=== PATIENT | male | born 1960 | race Caucasian/White ===

== ENCOUNTER 2021-02-14 15:11 | Inpatient (IN) | payer OTHER ==
[~2021-02-14] VITALS: Ht 182.9 cm; Wt 91.2 kg
[2021-02-14] MEDS ORDERED: HEPARIN 25,000 UNIT 1,500 UNIT in DEXTROSE 5% 250ML 250 ML IV SCH (15:45)
[2021-02-14 15:54] VITALS: BP 145/92
[2021-02-14 16:00] LABS: BASOPHILS # (AUTO) 0.1 (0.0-0.1); BASOPHILS % 0.5 % (0.0-1.0); EOSINOPHILS # (AUTO) 0.3 (0.0-0.4); EOSINOPHILS % 3.4 % (0.0-6.0); HEMATOCRIT 44.7 % (38.2-49.6); HEMOGLOBIN 14.8 g/dL (14.0-18.0); LYMPHOCYTES # (AUTO) 1.5 (1.0-3.2); LYMPHOCYTES % 14.5 % (18.0-39.1); MEAN CORPUSCULAR HEMOGLOBIN 31.1 pg (28-32); MEAN CORPUSCULAR HGB CONC 33.1 g/dL (31-35); MEAN CORPUSCULAR VOLUME 93.9 fL (81-99); MONOCYTES # (AUTO) 0.8 (0.2-0.8); MONOCYTES % 7.9 % (4.4-11.3); NEUTROPHILS # (AUTO) 7.4 (2.1-6.9); NEUTROPHILS % 73.3 % (38.7-80.0); PLATELET COUNT 164 x10e3/uL (140-360); RED BLOOD COUNT 4.76 x10e6/uL (4.3-5.7); RED CELL DISTRIBUTION WIDTH 13.1 % (11.7-14.4)
[2021-02-14 16:03] VITALS: BP 145/92
[2021-02-14 16:11] LABS: INR 0.92; PARTIAL THROMBOPLASTIN TIME 29.9 seconds (23.8-35.5)
[2021-02-14 16:19] LABS: ALANINE AMINOTRANSFERASE 36 IU/L (0-55); ALBUMIN/GLOBULIN RATIO 1.2 (0.8-2.0); ALKALINE PHOSPHATASE 51 IU/L (40-150); ANION GAP 12.4 mmol/L (8-16); BLOOD UREA NITROGEN 16 mg/dL (7-26); BUN/CREATININE RATIO 16 (6-25); CALCIUM 9.1 mg/dL (8.4-10.2); CARBON DIOXIDE 27 mmol/L (22-29); CHLORIDE 108 mmol/L (98-107); CHOL/HDL RATIO 3.4 (3.9-4.7); CHOLESTEROL 147 MD/DL (0-199); CREATININE, SERUM 0.97 mg/dL (0.72-1.25); EST GLOMERULAR FILTRATION RATE > 60 ML/MIN (60-); GLUCOSE 106 mg/dL (74-118); HDL CHOLESTEROL 43 MG/DL (40-60); LDL CHOLESTEROL 86 MG/DL (60-130); POTASSIUM 4.4 mmol/L (3.5-5.1); SODIUM 143 mmol/L (136-145); TRIGLYCERIDES 90 MG/DL (0-149)
[2021-02-14] MEDS: HEPARIN 25,000 UNIT 1,500 UNIT in DEXTROSE 5% 250ML 250 ML IV SCH (17:57)
[2021-02-14] MEDS ORDERED: ONDANSETRON HCL INJ 2MG/ML 2ML 2 MG/ML VIAL IV PRN (18:00)
[2021-02-14] MEDS ORDERED: DOCUSATE SODIUM 100 MG CAP PO PRN (18:00)
[2021-02-14] MEDS ORDERED: ZOLPIDEM TARTRATE 5 MG TAB PO PRN (18:00)
[2021-02-14] MEDS ORDERED: ACETAMINOPHEN 325 MG TAB PO PRN (18:00)
[2021-02-14] MEDS ORDERED: METOPROLOL TART25 MG PO (18:36)
[2021-02-14] MEDS ORDERED: LIPITOR10 MG PO (18:36)
[2021-02-14] MEDS ORDERED: LEXAPRO10 MG PO (18:37)
[2021-02-14 20:00] VITALS: BP 130/80
[2021-02-14] MEDS: ATORVASTATIN 10 MG TAB PO SCH (20:12)
[2021-02-14 21:00] VITALS: BP 130/80
[2021-02-15] VITALS (7 sets, daily range): BP systolic 119–141; BP diastolic 77–87
[2021-02-15] MEDS: HEPARIN 25,000 UNIT 1,500 UNIT in DEXTROSE 5% 250ML 250 ML IV SCH (00:24)
[2021-02-15 07:12] LABS: INR 0.95; PROTHROMBIN TIME 13.3 seconds (11.9-14.5)
[2021-02-15 07:13] LABS: PARTIAL THROMBOPLASTIN TIME 69.4 seconds (23.8-35.5)
[2021-02-15] MEDS ORDERED: METOPROLOL TARTRATE 25 MG TAB PO SCH (09:00)
[2021-02-15] MEDS: ESCITALOPRAM OXALATE 10 MG TAB PO SCH (09:23)
[2021-02-15] MEDS: PANTOPRAZOLE SOD 40 MG TABEC PO SCH (09:23)
[2021-02-15 10:08] LABS: BASOPHILS # (AUTO) 0.1 (0.0-0.1); BASOPHILS % 0.9 % (0.0-1.0); EOSINOPHILS # (AUTO) 0.4 (0.0-0.4); EOSINOPHILS % 4.4 % (0.0-6.0); HEMATOCRIT 45.9 % (38.2-49.6); HEMOGLOBIN 15.5 g/dL (14.0-18.0); LYMPHOCYTES # (AUTO) 1.6 (1.0-3.2); LYMPHOCYTES % 19.4 % (18.0-39.1); MEAN CORPUSCULAR HEMOGLOBIN 31.2 pg (28-32); MEAN CORPUSCULAR HGB CONC 33.8 g/dL (31-35); MEAN CORPUSCULAR VOLUME 92.4 fL (81-99); MONOCYTES # (AUTO) 0.7 (0.2-0.8); MONOCYTES % 8.5 % (4.4-11.3); NEUTROPHILS # (AUTO) 5.6 (2.1-6.9); NEUTROPHILS % 66.6 % (38.7-80.0); PLATELET COUNT 175 x10e3/uL (140-360); RED BLOOD COUNT 4.97 x10e6/uL (4.3-5.7); RED CELL DISTRIBUTION WIDTH 12.9 % (11.7-14.4)
[2021-02-15 10:10] LABS: ANION GAP 15.2 mmol/L (8-16); BLOOD UREA NITROGEN 12 mg/dL (7-26); BUN/CREATININE RATIO 15 (6-25); CALCIUM 9.2 mg/dL (8.4-10.2); CARBON DIOXIDE 23 mmol/L (22-29); CHLORIDE 107 mmol/L (98-107); EST GLOMERULAR FILTRATION RATE > 60 ML/MIN (60-); GLUCOSE 129 mg/dL (74-118); PHOSPHORUS 2.6 MG/DL (2.3-4.7); POTASSIUM 4.2 mmol/L (3.5-5.1); SODIUM 141 mmol/L (136-145)
[2021-02-15] MEDS: ATORVASTATIN 10 MG TAB PO SCH (20:40)
[2021-02-16] VITALS: BP 119/84
[2021-02-16] MEDS: HEPARIN 25,000 UNIT 1,500 UNIT in DEXTROSE 5% 250ML 250 ML IV SCH (02:37)
[2021-02-16] MEDS ORDERED: HEPARIN 25,000 UNIT DRIP IV ONE (02:45)
[2021-02-16 04:00] VITALS: BP 124/86
[2021-02-16 06:16] LABS: BASOPHILS # (AUTO) 0.1 (0.0-0.1); BASOPHILS % 0.8 % (0.0-1.0); EOSINOPHILS # (AUTO) 0.4 (0.0-0.4); EOSINOPHILS % 4.8 % (0.0-6.0); HEMATOCRIT 43.6 % (38.2-49.6); HEMOGLOBIN 14.8 g/dL (14.0-18.0); LYMPHOCYTES # (AUTO) 1.5 (1.0-3.2); LYMPHOCYTES % 20.4 % (18.0-39.1); MEAN CORPUSCULAR HEMOGLOBIN 31.2 pg (28-32); MEAN CORPUSCULAR HGB CONC 33.9 g/dL (31-35); MONOCYTES # (AUTO) 0.7 (0.2-0.8); MONOCYTES % 9.6 % (4.4-11.3); NEUTROPHILS # (AUTO) 4.6 (2.1-6.9); NEUTROPHILS % 64.1 % (38.7-80.0); PLATELET COUNT 176 x10e3/uL (140-360); RED BLOOD COUNT 4.74 x10e6/uL (4.3-5.7); RED CELL DISTRIBUTION WIDTH 12.7 % (11.7-14.4)
[2021-02-16 06:52] LABS: ANION GAP 12.9 mmol/L (8-16); BLOOD UREA NITROGEN 12 mg/dL (7-26); BUN/CREATININE RATIO 13 (6-25); CALCIUM 8.9 mg/dL (8.4-10.2); CARBON DIOXIDE 26 mmol/L (22-29); CHLORIDE 107 mmol/L (98-107); CREATININE, SERUM 0.93 mg/dL (0.72-1.25); EST GLOMERULAR FILTRATION RATE > 60 ML/MIN (60-); GLUCOSE 128 mg/dL (74-118); PHOSPHORUS 3.2 MG/DL (2.3-4.7); POTASSIUM 3.9 mmol/L (3.5-5.1); SODIUM 142 mmol/L (136-145)
[2021-02-16 07:37] LABS: FERRITIN 263.86 ng/mL (21.81-274.66)
[2021-02-16 07:51] VITALS: BP 130/95
[2021-02-16] MEDS: ESCITALOPRAM OXALATE 10 MG TAB PO SCH (08:48)
[2021-02-16] MEDS: PANTOPRAZOLE SOD 40 MG TABEC PO SCH (08:52)
[2021-02-16 11:56] VITALS: BP 134/86
[2021-02-16 16:13] VITALS: BP 134/87
[2021-02-16] MEDS: RIVAROXABAN 15 MG TABLET PO SCH (17:03)
[2021-02-16 20:00] VITALS: BP 145/91
[2021-02-16] MEDS: ATORVASTATIN 10 MG TAB PO SCH (20:36)
[2021-02-17] VITALS: BP 121/82
[2021-02-17 04:00] VITALS: BP 129/87
[2021-02-17 08:47] VITALS: BP 122/85
[2021-02-17 09:00] VITALS: BP 122/85
[2021-02-17] MEDS: PANTOPRAZOLE SOD 40 MG TABEC PO SCH (10:53)
[2021-02-17] MEDS: RIVAROXABAN 15 MG TABLET PO SCH (10:53)
[2021-02-17] MEDS: ESCITALOPRAM OXALATE 10 MG TAB PO SCH (10:53)
[2021-02-17 11:32] VITALS: BP 123/86
[2021-02-17] MEDS ORDERED: XARELTO15 MG PO (11:32)
[2021-02-17] MEDS ORDERED: PROTONIX40 MG/ML PO (11:32)
== END 2021-02-17 14:19 | disposition home or self-care (01) | DRG 299 ==
LOC: MED/SURG2 15:11
PROVIDERS: ADMIT Internal Medicine; ATTEND Internal Medicine
DX: I82.409 Acute embolism and thrombosis of unspecified deep veins of unspecified lower extremity (principal); I26.99 Other pulmonary embolism without acute cor pulmonale; T50.B95A Adverse effect of other viral vaccines, initial encounter; Z86.16 Personal history of COVID-19; Z20.822 Contact with and (suspected) exposure to COVID-19; E11.9 Type 2 diabetes mellitus without complications; E66.9 Obesity, unspecified; Z68.27 Body mass index [BMI] 27.0-27.9, adult; I10 Essential (primary) hypertension; E78.5 Hyperlipidemia, unspecified
CPT/HCPCS: 36415; 80048; 80053; 80061; 81241; 81400; 82105; 82378; 82728; 82948; 83615; 83735; 84100; 84152; 85025; 85303; 85306; 85379; 85610; 85730; 86022; 86140; 86301; 93306; 93970